=== PATIENT | male | born 2000 | race Caucasian/White ===

== ENCOUNTER 2024-07-15 17:54 | Emergency (ER) | payer SELFPAY ==
[~2024-07-15] VITALS: Ht 188 cm; Wt 63.5 kg
[2024-07-15] MEDS ORDERED: CHLORDIAZEPOXIDE HCL 25 MG CAPSULE ONE (18:45)
[2024-07-15] MEDS: CHLORDIAZEPOXIDE HCL 25 MG CAPSULE PO ONE (18:50)
[2024-07-15 18:53] VITALS: BP 105/68; TEMP 98; O2SAT 100
== END 2024-07-15 18:53 | disposition home or self-care (01) ==
LOC: ER 18:00
DX: F13.239 Sedative, hypnotic or anxiolytic dependence with withdrawal, unspecified (principal)
CPT/HCPCS: 82962-TC